=== PATIENT | female | born 1990 | race Caucasian/White ===

== ENCOUNTER 2024-08-01 01:37 | Day surgery (SDC) | payer BC, SELFPAY ==
[2024-06-18 11:49] VITALS: BMI 27.1
[2024-07-25 14:55] VITALS: BMI 27.1
[2024-08-01 11:07] VITALS: BP 113/59; PULSE 65; RESP 18; TEMP 36.6; O2SAT 100
[2024-08-01 11:13] LABS: BEDSIDEPREGUCG Negative (Negative)
--- NOTE | 2024-08-01 11:44 | P.PNAN_ITS ---
Anes - Initial Pre Proc Eval Procedure: Operation Date: 08/01/24 13:30 Proposed Procedures p Colonoscopy - Nikolay García MD Date/Time: 08/01/24 11:44 Surgeon: Nikolay García MD Pre Op Diagnosis: Constipation Patient Data Age: 33 Gender: F Height: 1.55 m Weight: 64.4 kg Last Vital Signs Temp 36.6 C 08/01/24 11:07 Pulse 65 08/01/24 11:07 Resp 18 08/01/24 11:07 BP 113/59 L 08/01/24 11:07 Pulse Ox 100 08/01/24 11:07 O2 Del Method Room Air 08/01/24 11:07 Allergies Allergy/AdvReac Type Severity Reaction Status Date / Time Sulfa (Sulfonamide Allergy Unknown unknown Verified 08/01/24 11:07 Antibiotics) Home Medications Medication Instructions Recorded Confirmed Type cholecalciferol (vitamin D3) 125 125 mcg PO DAILY 11/09/22 08/01/24 History mcg (5,000 unit) capsule atorvastatin 20 mg tablet 20 mg PO DAILY #90 tabs 11/23/23 08/01/24 Rx escitalopram oxalate 10 mg tablet 10 mg PO DAILY #90 tabs 11/23/23 08/01/24 Rx (Lexapro) ferrous sulfate 325 mg (65 mg 325 mg PO DAILY 11/23/23 08/01/24 History iron) tablet valacyclovir 1 gram tablet 2,000 mg PO Q12H PRN fever blister 06/18/24 08/01/24 History vitamin B complex 1 tablet PO DAILY 06/18/24 08/01/24 History fluticasone propionate 50 1 spray intranasal BID PRN allergy 06/20/24 08/01/24 Rx mcg/actuation nasal symptoms #16 grams spray,suspension (Flonase Allergy Relief) Laboratory Tests 08/01/24 11:11 POC Urine HCG, Qual Negative (Negative) Patient hx anesthesia problems: none Family hx anesthesia problems: none Results Review: All pre-operative results and documents have been reviewed as part of the pre-operative evaluation. 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 Hyperlipidemia Hypersomnia Moderately severe major depression Overweight (BMI 25.0-29.9) Restless sleeper Screening for diabetes mellitus Seasonal allergic rhinitis Snoring Vitamin B deficiency Vitamin D deficiency Family History Family History Mother Depression Heart disease Sibling Depression Grandparent Heart disease Cerebrovascular accident Social History Social History Smoking packs per day: 0 Smoking cigarettes per day: 0.0 Smoking status: Never smoker Alcohol intake: never Alcohol use details: 2 per month Substance use: never Lack of Transportation: No Lack of Food: Never True Current Housing: I Have Housing Concerned About Future Housing: No Difficulty Paying Gas/Electric Bills: No Difficulty Paying for Meds: No Currently Unemployed: No Education: Master's Degree or Higher Difficulty w/ Childcare or Family Care: No Living arrangements: with family Occupation/Education: occupation Gender identity (if verbalized by the patient): Female Spiritual care concerns: No Agree to blood products: Yes Anes - Eval Final PreProcedure Day of Procedure 08/01/24 11:44 Patient weight: overweight Heart: regular rate and rhythm Lungs: clear to auscultation Airway: Mallampati scale class II Neurological: alert and oriented Last oral intake: >/= 8 hours ASA classification: II Emergent: no Anesthetic plan: proceed Anesthesia type and monitoring: general GIVS and standard monitoring Results Review: All pre-operative results and documents have been reviewed as part of the pre- operative evaluation. Informed Consent: The patient's anesthetic plan and its attendant risks and benefits were discussed with the patient/family/POA. Questions were solicited and answers provided to the satisfaction of the patient/family/POA.
--- NOTE | 2024-08-01 12:26 | PM.HPGS ---
History of Present Illness History of Present Illness Consent: Risks, benefits, and alternatives have been discussed and questions answered. Patient agrees to proceed with procedure. 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 lip Hyperlipidemia Hypersomnia Moderately severe major depression Overweight (BMI 25.0-29.9) Restless sleeper Screening for diabetes mellitus Seasonal allergic rhinitis Snoring Vitamin B deficiency Vitamin D deficiency Family History Family History Mother Depression Heart disease Sibling Depression Grandparent Heart disease Cerebrovascular accident Social History Social History Smoking packs per day: 0 Smoking cigarettes per day: 0.0 Smoking status: Never smoker Alcohol intake: never Alcohol use details: 2 per month Substance use: never Lack of Transportation: No Lack of Food: Never True Current Housing: I Have Housing Concerned About Future Housing: No Difficulty Paying Gas/Electric Bills: No Difficulty Paying for Meds: No Currently Unemployed: No Education: Master's Degree or Higher Difficulty w/ Childcare or Family Care: No Living arrangements: with family Occupation/Education: occupation Gender identity (if verbalized by the patient): Female Spiritual care concerns: No Agree to blood products: Yes Meds Home Medications and Allergies Home Medications Medication Instructions Recorded Confirmed Type cholecalciferol (vitamin D3) 125 125 mcg PO DAILY 11/09/22 08/01/24 History mcg (5,000 unit) capsule atorvastatin 20 mg tablet 20 mg PO DAILY #90 tabs 11/23/23 08/01/24 Rx escitalopram oxalate 10 mg tablet 10 mg PO DAILY #90 tabs 11/23/23 08/01/24 Rx (Lexapro) ferrous sulfate 325 mg (65 mg 325 mg PO DAILY 11/23/23 08/01/24 History iron) tablet valacyclovir 1 gram tablet 2,000 mg PO Q12H PRN fever blister 06/18/24 08/01/24 History vitamin B complex 1 tablet PO DAILY 06/18/24 08/01/24 History fluticasone propionate 50 1 spray intranasal BID PRN allergy 06/20/24 08/01/24 Rx mcg/actuation nasal symptoms #16 grams spray,suspension (Flonase Allergy Relief) Allergies Allergy/AdvReac Type Severity Reaction Status Date / Time Sulfa (Sulfonamide Allergy Unknown unknown Verified 08/01/24 11:07 Antibiotics) Vital Signs Vital Signs - 24 hr 08/01/24 11:07 Temperature 97.8 F Pulse Rate 65 Respiratory Rate 18 Blood Pressure 113/59 L Pulse Oximetry 100 Oxygen Delivery Room Air Exam Const: General: comfortable and no acute distress HENMT: Face/Nose/Sinus: Normal nares present Eyes: General: appearance normal, both eyes and all related structures Neck: Neck: no JVD Resp: Auscultation: clear to auscultation bilaterally Cardio: Rate: regular rate Rhythm: regular rhythm GI: Inspection: non-distended GI Palp: Yes Soft to palpation Skin: General skin exam: normal color Neuro: General: gait normal Speech: normal speech Extrem: General: normal to inspection Psych: Mental Status: mental status grossly normal Assessment and Plan Assessment and plan (1) Constipation: Code(s): K59.00 - Constipation, unspecified Status: Acute Assessment and Plan: colonoscopy
[2024-08-01] MEDS: LACTATED RINGERS 1,000 ML 150 ML IV CONT (12:38)
[2024-08-01 12:40] VITALS: BP 88/40; PULSE 64; RESP 22; O2SAT 100
[2024-08-01 12:50] VITALS: BP 94/60; PULSE 56; RESP 18; O2SAT 100
[2024-08-01 13:00] VITALS: BP 100/60; PULSE 56; RESP 12; O2SAT 100
== END 2024-08-01 13:12 | disposition home or self-care (01) ==
PROVIDERS: Anesthesiology; PCP Nurse Practitioner Family; Visit Provider Internal Medicine Gastroenterology
PROC: 0DJD8ZZ Inspection of Lower Intestinal Tract, Via Natural or Artificial Opening Endoscopic (ICD-10-PCS; CPT 45378; principal; 2024-08-01 13:30)
DX: K59.00 Constipation, unspecified (principal); E78.5 Hyperlipidemia, unspecified; D64.9 Anemia, unspecified; F32.1 Major depressive disorder, single episode, moderate; E55.9 Vitamin D deficiency, unspecified; E53.9 Vitamin B deficiency, unspecified; F41.9 Anxiety disorder, unspecified
CPT/HCPCS: 45378; J2003; J2704; J7120